=== PATIENT | female | born 1980 | race Two or more races ===

== ENCOUNTER 2025-05-30 03:14 | Emergency (ER) | payer OTHER, MEDICAID ==
[~2025-05-30] VITALS: Ht 162.6 cm; Wt 80.0 kg
[2025-05-30] MEDS ORDERED: GABA300T4 PO (03:56)
[2025-05-30] MEDS ORDERED: CEPH250C PO (03:56)
--- NOTE | 2025-05-30 04:09 | ED.PDOC ---
History of Present Illness(SKN HPI Comments 45-year-old female who came to ER for insect bite/spider bite. About an hour prior to arrival, patient noted bleeding on the lateral aspect of her right lower leg, noted a black spider at the bleeding site. Patient is starting complaining of burning pain on the right lower leg. Chief Complaint: Insect Bite Time Seen by MD: 04:09 Primary Care Provider: ? History of Present Illness: Nurses Notes Allergies: Coded Allergies: NO KNOWN ALLERGIES (Unverified , 01/19/25) Home Meds Active Scripts Cephalexin (KEFLEX CAPSULE) 250 Mg Cp, 250 MG PO TID for 7 Days, #21 TAB Prov:ROSY FERRARA MD 05/30/25 Gabapentin (Once-Daily) (Gabapentin) 300 Mg Tab, 300 MG PO BID PRN, #30 TAB Prov:ROSY FERRARA MD 05/30/25 Information Source: Patient, Relative Mode of Arrival: Ambulatory Past Medical History PAST MEDICAL HISTORY: CVA, ESRD, HTN Surgical History: Denies all surgeries Surgical History (Other): Brain surgery, dialysis CONSERVATION PLANNER History: No Pertinent CONSERVATION PLANNER History Family History Family History: Reviewed,noncontributory to illness, No family hx of Cancer, No family hx of DM, No family hx of Heart heidy, No family hx of HTN, No family hx ofKidney heidy, No family hx of Liver heidy, No family hx of Lung heidy, No family hx of Stroke Social History Smoker: Non-Smoker Alcohol: Denies ETOH Use Drugs: Denies Drug Use Lives In: Home Constitutional: denies: chills, diaphoresis, fatigue, fever, malaise, sweats, weakness, others EENTM: denies: blurred vision, double vision, ear bleeding, ear discharge, ear drainage, ear pain, ear ringing, eye pain, eye redness, hearing loss, mouth pain, mouth swelling, nasal discharge, nose bleeding, nose congestion, nose pain, photophobia, tearing, throat pain, throat swelling, voice changes, others Respiratory: denies: cough, hemoptysis, orthopnea, SOB at rest, shortness of breath, SOB with excertion, stridor, wheezing, others Cardiovascular: denies: chest pain, dizzy spells, diaphoresis, Dyspnea on exertion, edema, irregular heart beat, left arm pain, lightheadedness, palpitations, PND, syncope, others Gastrointestinal: denies: abdomen distended, abdominal pain, blood streaked bowels, constipated, diarrhea, dysphagia, difficulty swallowing, hematemesis, melena, nausea, poor appetite, poor fluid intake, rectal bleeding, rectal pain, vomiting, others Genitourinary: denies: abnormal vagina bleeding, burning, dyspareunia, dysuria, flank pain, frequency, hematuria, incontinence, pain, , vagina discharge, urgency, others Neurological: denies: dizziness, fainting, headache, left sided numbness, left sided weakness, numbness, paresthesia, pre-existing deficit, right sided numbness, right sided weakness, seizure, speech problems, tingling, tremors, weakness, others Musculoskeletal: denies: back pain, gout, joint pain, joint swelling, muscle pain, muscle stiffness, neck pain, others Integumetry: reports: others (Spider bite right lateral lower leg); denies: bruises, change in color, change in hair/nails, dryness, laceration, lesions, lumps, rash, wounds Allergic/Immunocompromised: denies: Difficulty Healing, Frequent Infections, Hives, Itching, others Hematologic/Lymphatic: denies: anemia, blood clots, easy bleeding, easy bru ising, swollen glands, others Endocrine: denies: excessive hunger, excessive sweating, excessive thirst, e xcessive urination, flushing, intolerance to cold, intolerance to heat, unexplained weight gain, unexplained weight loss, others Psychiatric: denies: anxiety, bipolar disorder, depression, hopeless, panic disorder, schizophrenia, sleepless, suicidal, others Physical Exam General Appearance: No Apparent Distress, Normal HEENT: Normal ENT Inspection, Pharynx Normal, TMs Normal Neck: Full Range of Motion, Non-Tender, Normal, Normal Inspection Respiratory: Chest Non-Tender, Lungs Clear, No Accessory Muscle Use, No Re spiratory Distress, Normal Breath Sounds Cardiovascular: No Edema, No JVD, No Murmur, No Gallop, Normal Peripheral Pulses, Regular Rate/Rhythm Breast Exam: Deferred Gastrointestinal: No Organomegaly, Non Tender, No Pulsatile Mass, Normal Bowel Sounds, Soft Genitalia: Deferred Pelvic: Deferred Rectal: Deferred Extremities: No calf tenderness, Normal capillary refill, Normal inspection, Normal range of motion, Non-tender, No pedal edema Musculoskeletal : Apperance: Normal Neurologic: Alert, nuclear medicine chief technologist II-XII nml as Tested, No Motor Deficits, Normal Affect, Normal Mood, No Sensory Deficits Cerebellar Function: Normal Reflexes: Normal Skin: Dry, Normal Color, Warm Lymphatic: No Adenopathy Was a procedure done? Was a procedure done?: No Differential Diagnosis (INTG) Differential Diagnosis: Cellulitis, Hematoma, Insect Envenomation, Puncture Wound X-Ray, Labs, Meds, VS Vital Signs Date Time Temp Pulse Resp B/P (MAP) Pulse Ox O2 Delivery O2 Flow Rate FiO2 05/30/25 06:26 98.0 63 18 122/81 (95) 94 98.0 05/30/25 06:00 Room Air* 0 21 05/30/25 04:42 98.3 65 20 157/88 (111) 96 98.3 05/30/25 04:42 65 18 157/88 05/30/25 03:15 97.4 68 16 178/103 99 97.4 Current Medications Medications (Trade) Dose Ordered Sig/Karen Route Start Time Stop Time Status Last Admin Hydromorphone HCl (Dilaudid Injection) 1 mg ONCE ONCE IM 05/30/25 04:00 05/30/25 04:01 DC 05/30/25 04:42 Ondansetron HCl (Zofran Po) 4 mg ONCE ONCE PO 05/30/25 04:00 05/30/25 04:01 DC 05/30/25 04:42 Cephalexin (Keflex Capsule) 500 mg ONCE ONCE PO 05/30/25 04:00 05/30/25 04:01 DC 05/30/25 04:42 Time of 1ST Reevaluation: 04:04 Reevaluation 1ST: Unchanged Patient Education/Counseling: Diagnosis, Treatment Family Education/Counseling: No Family Present SEPSIS Sepsis Screen Date sepsis recognized/suspect: May 30, 2025 Time Sepsis recognized/suspect: 317 Recent Procedure: No On Antibiotic Therapy: No Respiratory Rate >20: No Heart Rate >90: No Temp<36 C (96.8 F) or >38.3 C: No SBP <90 or MAP <65 mmHG: No New Acute Mental Status Change: No Is the patient on CPAP, BIPAP,: No Vital Signs Date Time Temp Pulse Resp B/P (MAP) Pulse Ox O2 Delivery O2 Flow Rate FiO2 05/30/25 06:26 98.0 63 18 122/81 (95) 94 98.0 05/30/25 06:00 Room Air* 0 21 05/30/25 04:42 98.3 65 20 157/88 (111) 96 98.3 05/30/25 04:42 65 18 157/88 05/30/25 03:15 97.4 68 16 178/103 99 97.4 Departure 1 Departure Time of Disposition: 05:30 Impression: Primary Impression: Spider bite Disposition: HOME / SELF CARE / HOMELESS Condition: Stable Additional Instructions: Follow up today for dialysis Return to the ED for any worsening symptoms or concerns for any worsening symptoms or concerns e-Prescriptions Cephalexin (KEFLEX CAPSULE) 250 Mg Cp 250 MG PO TID for 7 Days, #21 TAB Prov: ROSY FERRARA MD 05/30/25 Gabapentin (Once-Daily) (Gabapentin) 300 Mg Tab 300 MG PO BID PRN, #30 TAB Prov: ROSY FERRARA MD 05/30/25 Discharged With: Self, Relative Critical Care Note Critical Care Time?: No Stability Stability form required: No Heart Score Heart Score: Heart Score Response (Comments) Value History N/A 0 EKG N/A 0 Age N/A 0 Risk Factors N/A 0 Troponin N/A 0 Total 0 I personally scribed for ROSY FERRARA MD ([email or web address]) on 05/30/25 at 04:09. Electronically submitted by Timothy Suggs ([email or web address]). ROSY FERRARA MD May 30, 2025 04:09
[2025-05-30] MEDS: ONDANSETRON ODT 4 MG TAB PO ONE (04:42)
[2025-05-30] MEDS: HYDROmorphone HCL 2 MG/ML VL/or syr IM ONE (04:42)
[2025-05-30] MEDS: CEPHALEXIN 250 MG CAP PO ONE (04:42)
[2025-05-30 06:26] VITALS: BP 122/81; PULSE 63; RESP 18; TEMP 98; O2SAT 94
== END 2025-05-30 06:31 | disposition home or self-care (01) ==
LOC: ER 03:14
DX: T63.301A Toxic effect of unspecified spider venom, accidental (unintentional), initial encounter (principal); I12.0 Hypertensive chronic kidney disease with stage 5 chronic kidney disease or end stage renal disease; N18.6 End stage renal disease; Z99.2 Dependence on renal dialysis; Z86.73 Personal history of transient ischemic attack (TIA), and cerebral infarction without residual deficits; Z79.899 Other long term (current) drug therapy; Y92.89 Other specified places as the place of occurrence of the external cause
CPT/HCPCS: 96372; 99283; J1171; Q0162

== ENCOUNTER 2025-06-11 15:58 | Emergency (ER) | payer OTHER, MEDICAID ==
[~2025-06-11] VITALS: Ht 162.6 cm; Wt 82.0 kg
[~2025-06-11 15:58] MED LIST: CEPH250C PO; GABA300T4 PO
--- NOTE | 2025-06-11 16:18 | ED.PDOC ---
History of Present Illness HPI Comments 45 year old female with PMHx CVA, seizure, CAD, ESRD, liver cirrhosis, HTN, anxiety, presents to the ED via EMS with a chief complaint of seizure onset today. Per EMS, patient was at [place] urgent [facility], went in due to fall in the shower, experienced a witnessed seizure, 911 was called. Patient states she possibly experienced seizure in the shower, is not sure. Denies fever, chills, nausea, vomiting, diarrhea, chest pain, shortness of breath. No other symptoms or modifying factors present at this time. Time Seen by MD: 16:05 Primary Care Provider: ? Reviewed Notes: Nurses Notes, Medications, Allergies Allergies: Coded Allergies: NO KNOWN ALLERGIES (Unverified , 01/19/25) Home Meds Active Scripts Cephalexin (KEFLEX CAPSULE) 250 Mg Cp, 250 MG PO TID for 7 Days, #21 TAB Prov:ROSY FERRARA MD 05/30/25 Gabapentin (Once-Daily) (Gabapentin) 300 Mg Tab, 300 MG PO BID PRN, #30 TAB Prov:ROSY FERRARA MD 05/30/25 Information Source: Patient, Emergency Med Personnel Mode of Arrival: EMS Severity: Moderate Timing: Hours Duration: Since onset Prehospital treatment: None Past Medical History PAST MEDICAL HISTORY: Anxiety, CAD, CVA, ESRD, HTN, Liver Surgical History: SHOWER DOORS AND PANELS FABRICATOR History: No Pertinent SHOWER DOORS AND PANELS FABRICATOR History Family History Family History: Reviewed,noncontributory to illness, No family hx of Cancer, No family hx of DM, No family hx of Heart heidy, No family hx of HTN, No family hx ofKidney heidy, No family hx of Liver heidy, No family hx of Lung heidy, No family hx of Stroke Social History Smoker: Non-Smoker Alcohol: Denies ETOH Use Drugs: Denies Drug Use Lives In: Home Constitutional: denies: chills, diaphoresis, fatigue, fever, malaise, sweats, weakness, others EENTM: denies: blurred vision, double vision, ear bleeding, ear discharge, ear drainage, ear pain, ear ringing, eye pain, eye redness, hearing loss, mouth pain, mouth swelling, nasal discharge, nose bleeding, nose congestion, nose pain, photophobia, tearing, throat pain, throat swelling, voice changes, others Respiratory: denies: cough, hemoptysis, orthopnea, SOB at rest, shortness of breath, SOB with excertion, stridor, wheezing, others Cardiovascular: denies: chest pain, dizzy spells, diaphoresis, Dyspnea on exertion, edema, irregular heart beat, left arm pain, lightheadedness, palpitations, PND, syncope, others Gastrointestinal: denies: abdomen distended, abdominal pain, blood streaked bowels, constipated, diarrhea, dysphagia, difficulty swallowing, hematemesis, melena, nausea, poor appetite, poor fluid intake, rectal bleeding, rectal pain, vomiting, others Genitourinary: denies: abnormal vagina bleeding, burning, dyspareunia, dysuria, flank pain, frequency, hematuria, incontinence, pain, , vagina discharge, urgency, others Neurological: reports: seizure; denies: dizziness, fainting, headache, left sided numbness, left sided weakness, numbness, paresthesia, pre-existing deficit, right sided numbness, right sided weakness, speech problems, tingling, tremors, weakness, others Musculoskeletal: denies: back pain, gout, joint pain, joint swelling, muscle pain, muscle stiffness, neck pain, others Integumetry: denies: bruises, change in color, change in hair/nails, dryness, l aceration, lesions, lumps, rash, wounds, others Allergic/Immunocompromised: denies: Difficulty Healing, Frequent Infections, Hives, Itching, others Hematologic/Lymphatic: denies: anemia, blood clots, easy bleeding, easy bruising, swollen glands, others Endocrine: denies: excessive hunger, excessive sweating, excessive thirst, excessive urination, flushing, intolerance to cold, intolerance to heat, unexplained weight gain, unexplained weight loss, others Psychiatric: denies: anxiety, bipolar disorder, depression, hopeless, panic disorder, schizophrenia, sleepless, suicidal, others All Other Systems: Reviewed and Negative Physical Exam General Appearance: No Apparent Distress HEENT: Normal ENT Inspection, Pharynx Normal, TMs Normal Neck: Full Range of Motion, Non-Tender, Normal, Normal Inspection Respiratory: Chest Non-Tender, Lungs Clear, No Accessory Muscle Use, No Respiratory Distress, Normal Breath Sounds Cardiovascular: No Edema, No JVD, No Murmur, No Gallop, Normal Peripheral Pulses, Regular Rate/Rhythm Breast Exam: Deferred Gastrointestinal: No Organomegaly, Non Tender, No Pulsatile Mass, Normal Bowel Sounds, Soft Genitalia: Deferred Pelvic: Deferred Rectal: Deferred Extremities: No calf tenderness, Normal capillary refill, Normal inspection, Normal range of motion, Non-tender, No pedal edema Musculoskeletal : Apperance: Normal Neurologic: Alert, police records clerk II-XII nml as Tested, No Motor Deficits, Normal Affect, Normal Mood, No Sensory Deficits Cerebellar Function: Normal Reflexes: Normal Skin: Dry, Normal Color, Warm Lymphatic: No Adenopathy Was a procedure done? Was a procedure done?: No Differential Dx Considerations may include: Seizure activity, generalized weakness, electrolyte imbalance X-Ray, Labs, Meds, VS Vital Signs Date Time Temp Pulse Resp B/P (MAP) Pulse Ox O2 Delivery O2 Flow Rate FiO2 06/11/25 16:59 66 13 119/80 (93) 93 06/11/25 16:59 66 14 93 Room Air* 0 21 06/11/25 16:19 98.1 60 15 110/60 94 98.1 Lab Test 06/11/25 16:27 Range/Units White Blood Count 3.8 L 4.4-10.8 10^3/uL Red Blood Count 3.73 L 4.0-5.20 10^6/uL Hemoglobin 10.6 L 12.2-16.2 g/dL Hematocrit 32.3 L 36.0-46.0 % Mean Corpuscular Volume 86.8 80.0-100.0 fL Mean Corpuscular Hemoglobin 28.4 28.0-32.0 pg Mean Corpuscular Hemoglobin Concent 32.7 32.0-36.0 g/dL Red Cell Distribution Width 16.7 H 11.8-14.3 % Platelet Count 161 140-450 10^3/uL Mean Platelet Volume 8.8 6.9-10.8 fL Neutrophils (%) (Auto) 59.0 37.0-80.0 % Lymphocytes (%) (Auto) 20.6 10.0-50.0 % Monocytes (%) (Auto) 15.3 H 0.0-12.0 % Eosinophils (%) (Auto) 3.6 0.0-7.0 % Basophils (%) (Auto) 1.5 0.0-2.0 % Neutrophils # (Auto) 2.2 1.6-8.6 10 ^3/uL Lymphocytes # (Auto) 0.8 0.4-5.4 10 ^3/uL Monocytes # (Auto) 0.6 0-1.3 10 ^3/uL Eosinophils # (Auto) 0.1 0-0.8 10 ^3/uL Basophils # (Auto) 0.1 0-0.2 10 ^3/uL Nucleated Red Blood Cells 0.1 % Sodium Level 140 136-145 mmol/L Potassium Level 4.4 3.5-5.1 mmol/L Chloride Level 100 98-107 mmol/L Carbon Dioxide Level 29 20-31 mmol/L Anion Gap 11 5-15 Blood Urea Nitrogen 34 H 9-23 mg/dL Creatinine 7.63 H 0.550-1.02 mg/dL Glomerular Filtration Rate Calc 6 >90 mL/min BUN/Creatinine Ratio 4.5 L 10.0-20.0 Serum Glucose 82 74-106 mg/dL Calcium Level 7.1 L 8.7-10.4 mg/dL Current Medications Medications (Trade) Dose Ordered Sig/Karen Route Start Time Stop Time Status Last Admin Levetiracetam 100 ml @ 400 mls/hr ONCE ONCE IV 06/11/25 16:30 06/11/25 16:44 DC 06/11/25 16:56 The patient was given Keppra IV piggyback The patient's CBC shows anemia with a hemoglobin of 10.6 and hematocrit of 32.3 The chemistry panel shows a BUN of 34 and a creatinine of 7.63 At this time, the patient is being discharged The patient is now back to baseline. The patient will return to the emergency department's condition worsens Images Reviewed?: Images reviewed and evaluated by me Time of 1ST Reevaluation: 16:35 Reevaluation 1ST: Unchanged Time of 2ND Reevaluation: 18:15 Reevaluation 2ND: Improved Patient Education/Counseling: Diagnosis, Treatment, Prognosis, Need For Follow Up Family Education/Counseling: Diagnosis, Treatment, Prognosis, Need For Follow Up SEPSIS Sepsis Screen Physician Orders Pulse Oximetry (06/11/25 16:08) Blood Pressure (06/11/25 16:08) Heplock Iv (06/11/25 16:08) Seizure Precautions (06/11/25 16:08) Grades 1 6 Tutor (06/11/25 16:08) Head Without Contrast (06/11/25 16:08) Vital Signs Date Time Temp Pulse Resp B/P (MAP) Pulse Ox O2 Delivery O2 Flow Rate FiO2 06/11/25 16:59 66 13 119/80 (93) 93 06/11/25 16:59 66 14 93 Room Air* 0 21 06/11/25 16:19 98.1 60 15 110/60 94 98.1 Laboratory Tests Test 06/11/25 16:27 White Blood Count 3.8 10^3/uL (4.4-10.8) L Medications Medications Dose Ordered Sig/Karen Route Start Time Stop Time Status Last Admin Dose Admin Levetiracetam 100 ml @ 400 mls/hr ONCE ONCE IV 06/11/25 16:30 06/11/25 16:44 DC 06/11/25 16:56 Departure 1 Departure Time of Disposition: 18:16 Impression: Primary Impression: Breakthrough seizure Disposition: 01 HOME / SELF CARE / HOMELESS Condition: Fair Discharged With: Self Critical Care Note Critical Care Time?: No Stability Stability form required: No Heart Score Heart Score: Heart Score Response (Comments) Value History N/A 0 EKG N/A 0 Age N/A 0 Risk Factors N/A 0 Troponin N/A 0 Total 0 I personally scribed for SWAPNIL ELIZABETH MD ([email or web address]) on 06/11/25 at 16:18. Electronically submitted by Leola Garber ([email or web address]). SWAPNIL ELIZABETH MD Jun 11, 2025 16:18
[2025-06-11 16:19] VITALS: TEMP 98.1
[2025-06-11 16:48] LABS: Hematocrit 32.3 % (36.0-46.0); Hemoglobin 10.6 g/dL (12.2-16.2); Mean Corpuscular Hemoglobin 28.4 pg (28.0-32.0); Mean Corpuscular Volume 86.8 fL (80.0-100.0); Nucleated Red Blood Cells % 0.1 %
[2025-06-11 16:53] LABS: Chloride 100 mmol/L (98-107); Potassium 4.4 mmol/L (3.5-5.1); Sodium 140 mmol/L (136-145)
[2025-06-11 16:54] LABS: Anion Gap 11 (5-15); Carbon Dioxide 29 mmol/L (20-31)
[2025-06-11 16:55] LABS: Calcium 7.1 mg/dL (8.7-10.4)
[2025-06-11] MEDS: levETIRAcetam 1000 mg/100ml 100 ML IV ONE (16:56)
[2025-06-11 16:59] VITALS: PULSE 66; RESP 14; O2SAT 93
[2025-06-11 16:59] LABS: BUN/Creatinine Ratio 4.5 (10.0-20.0); Blood Urea Nitrogen 34 mg/dL (9-23); Glucose 82 mg/dL (74-106)
--- NOTE | 2025-06-11 17:17 | DVH ---
EXAM: CT HEAD WITHOUT CONTRAST INDICATION: seizure TECHNIQUE: CT of the head without intravenous contrast. Radiation Dose Information: CT Dose: CTDI volume is 48.2 mGy. Dose-length product is 836.97 mGy*cm The dose indicators for CT are the volume Computed Tomography (CT) Dose Index (CTDIvol) and the Dose Length Product (DLP), and are measured in units of mGy and mGy-cm, respectively. These indicators are not patient dose, but values generated from the CT scanner acquisition factors. The report includes radiation exposure data for exposures received during this examination. COMPARISON: CT ANGIO HEAD/NECK on DOS: 01/20/25, CT HEAD WITHOUT CONTRAST on DOS: 01/19/25, MRI BRAIN HEAD WO CONTRAST on DOS: 01/09/25, CT HEAD WITHOUT CONTRAST on DOS: 01/07/25, CT HEAD WITHOUT CONTRAST on DOS: 11/01/22 FINDINGS: There is no evidence of acute intracranial hemorrhage, extra-axial collection, mass effect, midline shift, herniation or hydrocephalus. The ventricles, sulci and cisterns are age appropriate. Left posterior frontal, temporal, and anterior parietal encephalomalacia and gliosis. Prior left pterional craniotomy. Patchy periventricular and subcortical white matter hypoattenuation is nonspecific but may be related to small vessel ischemic disease. The visualized paranasal sinuses and mastoid air cells are clear. The surrounding soft tissues and osseous structures are unremarkable. IMPRESSION: No acute intracranial abnormality.
[2025-06-11 18:23] VITALS: BP 125/80; PULSE 61; RESP 18; O2SAT 95
== END 2025-06-11 18:32 | disposition home or self-care (01) ==
LOC: ER 15:58 → EDBD 15:58 → ER 18:30
DX: G40.909 Epilepsy, unspecified, not intractable, without status epilepticus (principal); I12.0 Hypertensive chronic kidney disease with stage 5 chronic kidney disease or end stage renal disease; N18.6 End stage renal disease; I25.10 Atherosclerotic heart disease of native coronary artery without angina pectoris; Z86.73 Personal history of transient ischemic attack (TIA), and cerebral infarction without residual deficits; Z79.899 Other long term (current) drug therapy
CPT/HCPCS: 36415; 70450; 80048; 85025; 96365; 99285; J1953